=== PATIENT | male | born 1935 | race African-American/Black ===

== ENCOUNTER 2016-05-07 12:45 | Emergency (ER) | payer MEDICARE, MEDICAID ==
[~2016-05-07 12:45] MED LIST: Sodium Chloride 0.9% 1,000 ML BAG ONE
[2016-05-07 13:57] LABS: #Lymphocytes 0.6 thou/uL (1.20-3.40); #Neutrophils 1.4 thou/uL (1.40-6.50); %Basophils 1.3 % (0.0-1.0); %Eosinophils 6.9 % (0.0-10.0); %Lymphocytes 26.5 % (21.0-51.0); %Neutrophils 59.3 % (42.0-75.0); Hemoglobin 11.5 g/dL (14.0-18.0); Mean Corpuscular HGB CONC 30.9 g/dL (32.0-36.0); Mean Corpuscular Hemoglobin 24.9 pg (27.0-31.0); Mean Corpuscular Volume 80.7 fL (80.0-94.0); Mean Platelet Volume 6.4 fL (7.4-10.4); Platelet Count 105 thou/uL (130-400); RBC Distribution Width 16.3 % (11.5-14.5); Red Blood Cell (RBC) Count 4.61 mill/uL (4.70-6.10); White Blood Cell (WBC) Count 2.3 thou/uL (4.8-10.8)
[2016-05-07 13:58] LABS: #Eosinphils 0.2 thou/uL (0.0-0.7); #Monocytes 0.1 thou/uL (0.11-0.59)
[2016-05-07] MEDS ORDERED: Ondansetron HCl/PF 4 MG/2 ML Vial ONE (13:59)
[2016-05-07] MEDS ORDERED: Ketorolac Tromethamine 30 MG/ML VIAL ONE (13:59)
[2016-05-07 14:09] LABS: Amylase 233 U/L (20-160); CRP (Inflammatory) Less than 0.50 mg/dL (= or < 0.5); Lipase 101 U/L (8-78)
--- NOTE | 2016-05-07 14:11 | RAD ---
SINGLE VIEW OF CHEST: Date: 05/07/16 COMPARISON: 04/17/14. HISTORY: Vomiting. FINDINGS: Single view of the chest shows a normal sized cardiomediastinal silhouette. There is no evidence of consolidation, mass, or pleural effusion. The bones are unremarkable. IMPRESSION: No evidence of acute cardiopulmonary disease. POS: [facility]
[2016-05-07 14:34] LABS: ALT (SGPT) 7 U/L (0-55); AST (SGOT) 14 U/L (5-34); Albumin 4.1 g/dL (3.4-4.8); Alkaline Phosphatase 33 U/L (40-150); Anion Gap 16 mmol/L (10-20); BUN (Urea Nitrogen) 33 mg/dL (8.4-25.7); Bilirubin, Total 0.6 mg/dL (0.2-1.2); Calc. Creatinine Clearance 0 mL/min (70-130); Calcium 9.2 mg/dL (7.8-10.44); Carbon Dioxide 20 mmol/L (23-31); Chloride 108 mmol/L (98-107); Estimated GFR-MDRD 23; Globulin 3.2 g/dL (2.4-3.5); Glucose 96 mg/dL (83-110); Potassium 4.6 mmol/L (3.5-5.1); Protein, Total 7.3 g/dL (5.8-8.1); Sodium 139 mmol/L (136-145)
[2016-05-07 14:43] LABS: Bilirubin Negative (Negative); Blood, Urine Moderate (Negative); Clarity Clear (Clear); Glucose, Urine (Dipstick) 100 mg/dL (Negative); Leukocyte Negative (Negative); Nitrite Negative (Negative); Protein, Urine (Dipstick) 100 mg/dL (Neg-Trace); Urobilinogen 0.2 mg/dL (0.2-1.0); pH, Urine 5.5 (5.0-9.0)
[2016-05-07 14:44] LABS: WBC/HPF 0-3 HPF (0-3)
[2016-05-07 14:45] LABS: Bacteria/HPF Rare-Few HPF (None Seen); Squamous Epithelial 0-3 HPF (0-3)
== END 2016-05-07 17:41 | disposition home or self-care (01) ==
LOC: MADERS 12:45
DX: K86.1 Other chronic pancreatitis (principal); E78.5 Hyperlipidemia, unspecified; E78.00 Pure hypercholesterolemia, unspecified; I12.9 Hypertensive chronic kidney disease with stage 1 through stage 4 chronic kidney disease, or unspecified chronic kidney disease; N18.9 Chronic kidney disease, unspecified
CPT/HCPCS: 36415; 71010; 80053; 81003; 81015; 82150; 83690; 83880; 85025; 86140; 87086; 96361; 96374; 96375; J1885; J2405; J7050

== ENCOUNTER 2016-11-26 09:32 | Emergency (ER) | payer MEDICARE, MEDICAID ==
[2016-11-26 10:30] LABS: CKMB 0.9 ng/mL (0-6.6); Troponin I 0.014 ng/mL (< 0.028)
[2016-11-26 10:33] LABS: ALT (SGPT) 27 U/L (8-55); AST (SGOT) 28 U/L (5-34); Alkaline Phosphatase 96 U/L (40-150); Anion Gap 14 mmol/L (10-20); BUN (Urea Nitrogen) 30 mg/dL (8.4-25.7); Bilirubin, Total 0.6 mg/dL (0.2-1.2); Calc. Creatinine Clearance 0 mL/min (70-130); Calcium 9.6 mg/dL (7.8-10.44); Carbon Dioxide 19 mmol/L (23-31); Chloride 109 mmol/L (98-107); Estimated GFR-MDRD 29; Globulin 3.8 g/dL (2.4-3.5); Glucose 100 mg/dL (83-110); Potassium 4.4 mmol/L (3.5-5.1); Protein, Total 7.8 g/dL (5.8-8.1); Sodium 138 mmol/L (136-145)
[2016-11-26 10:39] LABS: #Eosinphils 0.1 thou/uL (0.0-0.7); #Lymphocytes 0.4 thou/uL (1.20-3.40); #Monocytes 0.2 thou/uL (0.11-0.59); #Neutrophils 1.5 thou/uL (1.40-6.50); %Basophils 1.4 % (0.0-1.0); %Lymphocytes 17.4 % (21.0-51.0); %Monocytes 9.1 % (0.0-10.0); %Neutrophils 67.2 % (42.0-75.0); Hemoglobin 11.3 g/dL (14.0-18.0); Mean Corpuscular HGB CONC 30.4 g/dL (32.0-36.0); Mean Corpuscular Hemoglobin 24.3 pg (27.0-31.0); Mean Platelet Volume 7.2 fL (7.4-10.4); Platelet Count 73 thou/uL (130-400); RBC Distribution Width 17.4 % (11.5-14.5); Red Blood Cell (RBC) Count 4.62 mill/uL (4.70-6.10); White Blood Cell (WBC) Count 2.3 thou/uL (4.8-10.8)
[2016-11-26 10:44] LABS: Anisocytosis SLIGHT = 6-15 cells (100X) (0-5/hpf)
--- NOTE | 2016-11-26 10:45 | RAD ---
PA AND LATERAL VIEWS OF CHEST: Date: 11/26/16 HISTORY: Chest pain, hypertension. FINDINGS: Comparison made with exam 06/20/16. The heart size is normal. The aorta is tortuous. 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 The lungs are well expanded without focal areas of consolidation, pneumothorax, or pleural effusions. N o acute osseous abnormalities are seen. IMPRESSION: No radiographic evidence of acute cardiopulmonary process. POS: [facility]
[2016-11-26 10:46] LABS: PLT Morphology Comment Appears Decreased
[2016-11-26] MEDS ORDERED: cloNIDine HCl 0.1 MG TAB ONE (10:56)
[2016-11-26] MEDS ORDERED: Ketorolac Tromethamine 30 MG/ML VIAL ONE (11:31)
== END 2016-11-26 13:20 | disposition home or self-care (01) ==
LOC: MADERS 09:32
DX: I10 Essential (primary) hypertension (principal); D61.818 Other pancytopenia; N28.9 Disorder of kidney and ureter, unspecified; M10.9 Gout, unspecified; E78.5 Hyperlipidemia, unspecified
CPT/HCPCS: 36415; 71020; 80053; 82553; 84484; 85025; 93005; 96372; J1885

== ENCOUNTER 2017-03-06 20:35 | Emergency (ER) | payer MEDICARE, MEDICAID ==
[2017-03-06] MEDS ORDERED: Morphine 4 MG/ML VIAL ONE (21:35)
[2017-03-06] MEDS ORDERED: Ondansetron HCl/PF 4 MG/2 ML Vial ONE (21:35)
[2017-03-06 21:47] LABS: Hemoglobin 11.8 g/dL (14.0-18.0); MDiff Complete? YES; Mean Corpuscular HGB CONC 32.8 g/dL (32.0-36.0); Mean Corpuscular Volume 85.2 fl (80.0-94.0); Platelet Count 167 thou/uL (130-400); RBC Distribution Width 21.7 % (11.5-14.5); Red Blood Cell (RBC) Count 4.23 mill/uL (4.70-6.10); White Blood Cell (WBC) Count 3.7 thou/uL (4.8-10.8)
[2017-03-06 21:48] LABS: Band 3 % (5-11); Lymphocytes 17 % (21-51); Neutrophil 67 % (42-75)
[2017-03-06 21:49] LABS: Metamyelocyte 1 % (0-0); Nucleated RBC 3 % (0)
[2017-03-06 21:50] LABS: Monocytes 6 % (0-10)
[2017-03-06 21:52] LABS: ALT (SGPT) 30 U/L (8-55); AST (SGOT) 45 U/L (5-34); Alkaline Phosphatase 224 U/L (40-150); Anion Gap 18 mmol/L (10-20); BUN (Urea Nitrogen) 22 mg/dL (8.4-25.7); Bilirubin, Total 29.2 mg/dL (0.2-1.2); Calc. Creatinine Clearance 0 mL/min (70-130); Calcium 8.9 mg/dL (7.8-10.44); Carbon Dioxide 17 mmol/L (23-31); Chloride 106 mmol/L (98-107); Estimated GFR-MDRD 32; Globulin 3.4 g/dL (2.4-3.5); Glucose 138 mg/dL (83-110); Lipase 75 U/L (8-78); Potassium 3.7 mmol/L (3.5-5.1); Protein, Total 6.4 g/dL (5.8-8.1); Sodium 137 mmol/L (136-145)
--- NOTE | 2017-03-06 22:28 | CT ---
CT ABDOMEN NONCONTRAST CT PELVIS NONCONTRAST: (urolithiasis protocol) DATE: 03-06-17 TIME: 9:24 p.m. HISTORY: 81-year-old male with obstructive jaundice and liver mass, presents with nausea, emesis, and right si ded abdominal pain. Chronic kidney disease. COMPARISON: Noncontrast CT of 12-22-16. TECHNIQUE: IV injection of iodinated contrast media: none Oral contrast media: none FINDINGS: Other than for urolithiasis, the lack of IV and oral contrast limits the evaluation. There is a new finding of diffuse, moderate to severe dilatation of intrahepatic bile ducts throughou t the liver. 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 The entire liver parenchyma is slightly high in attenuation. There is a new finding o f a moderate amount of free fluid throughout the abdominal cavity, and moderate to large amount of fr ee fluid in the pelvis. Again demonstrated is the large number of bilateral renal cysts. No renal, ur eteral, or bladder calculus. The presence of the ascites makes it difficult to evaluate for colonic d iverticulitis. No small bowel dilatation. Somewhat severe splenomegaly again demonstrated, mildly dis placing the left kidney. No definite pancreatic ductal dilation identified. No hydronephrosis. No abn ormal aortic aneurysm. Interval significant increase in volume of the right pleural effusion, now mod erate sized. New small left pleural effusion. No evidence of pneumoperitoneum. IMPRESSION: 1. New high grade biliary obstruction, probably by [place] tumor. 2. Moderate volume ascites. 3. Interval increase in bilateral pleural effusions, right greater than left. 4. Splenomegaly. 5. No urolithiasis or obstructive uropathy. FLORENCIO Gustafson POS: [facility]
== END 2017-03-06 23:26 | disposition short-term general hospital (02) ==
LOC: MADERS 20:35
DX: N17.9 Acute kidney failure, unspecified (principal); M10.9 Gout, unspecified; E78.5 Hyperlipidemia, unspecified; K92.2 Gastrointestinal hemorrhage, unspecified; Z79.899 Other long term (current) drug therapy
CPT/HCPCS: 36415; 74176; 80053; 83605; 83690; 85025; 96361; 96374; 96375; J2270; J2405; J7050